=== PATIENT | female | born 1970 | race Caucasian/White ===

== ENCOUNTER 2016-12-06 00:57 | Day surgery (SDC) | payer OTHER ==
[2016-12-04 10:48] VITALS: BP 143/94
[2016-12-04 11:09] LABS: BASOPHIL % 0.5 % (0.0-0.2); EOSINOPHIL # 0.4 10^3/uL (0.0-0.2); EOSINOPHIL % 5.9 % (0.0-5.0); HEMATOCRIT 38.1 % (36.0-46.0); HEMOGLOBIN 12.3 g/dL (12.0-15.0); LYMPHOCYTES # 1.7 10^3/uL (1.0-4.8); LYMPHOCYTES % 26.8 % (24.0-44.0); MEAN CELL HGB 28.5 pg (26-34); MEAN CELL HGB CONCENTRATION 32.3 g/dL (33-37); MEAN CORP VOLUME 88.2 fL (78-100); MONOCYTES # 0.4 10^3/uL (0.3-0.8); MONOCYTES % 6.7 % (5.0-12.0); NEUTROPHIL # 3.8 10^3/uL (1.8-7.7); NEUTROPHILS % 59.2 % (41.0-85.0); WHITE BLOOD CELL 6.5 10^3/uL (4.5-11.0)
[2016-12-04 11:10] LABS: BILIRUBIN,URINE NEGATIVE (NEGATIVE); UROBILINOGEN,URINE NORMAL (NEGATIVE)
[2016-12-04 11:12] LABS: APPEARANCE,URINE CLEAR (CLEAR); UA COLOR YELLOW (YELLOW)
[2016-12-06] VITALS (11 sets, daily range): BP systolic 128–163; BP diastolic 70–84
[~2016-12-06] VITALS: Ht 167.6 cm; Wt 117.0 kg
[~2016-12-06 00:57] MED LIST: FLUO20CA8 PO
[2016-12-06] MEDS ORDERED: NS 100ML 100 ML IV ONE (05:21)
[2016-12-06] MEDS ORDERED: ANCEF ONE (05:22)
[2016-12-06] MEDS ORDERED: LACTATED RINGERS 1,000 ML ONE ×2 (05:22→08:59)
[2016-12-06] MEDS ORDERED: ANCEF 1 GM in NS 100ML 100 ML IV ONE (06:00)
[2016-12-06] MEDS: LACTATED RINGERS 1,000 ML IV SCH ×2 (06:13→08:48)
[2016-12-06] MEDS ORDERED: ZEMURON IV ONE (06:35)
[2016-12-06] MEDS ORDERED: ZOFRAN ONE (06:35)
[2016-12-06] MEDS ORDERED: NEOSTIGMINE ONE (06:35)
[2016-12-06] MEDS ORDERED: TORADOL ONE (06:35)
[2016-12-06] MEDS ORDERED: XYLOCAINE ONE (06:35)
[2016-12-06] MEDS ORDERED: DECADRON ONE (06:35)
[2016-12-06] MEDS ORDERED: SUBLIMAZE ONE (06:36)
[2016-12-06] MEDS ORDERED: ROBINUL ONE ×2 (06:36→09:15)
[2016-12-06] MEDS ORDERED: DIPRIVAN IV ONE (06:36)
[2016-12-06] MEDS ORDERED: LACTATED RINGERS 2,000 ML ONE (06:37)
[2016-12-06] MEDS ORDERED: DILAUDID ONE (06:37)
[2016-12-06] MEDS ORDERED: VERSED ONE (06:37)
[2016-12-06] MEDS ORDERED: SODIUM CHLORIDE IR ONE ×2 (07:22)
[2016-12-06] MEDS ORDERED: MOTRIN PO ONE (09:30)
[2016-12-06] MEDS ORDERED: SUBLIMAZE IV PRN ×2 (09:30)
[2016-12-06] MEDS ORDERED: DILAUDID IV PRN (09:30)
[2016-12-06] MEDS ORDERED: MOTRIN ONE (09:40)
--- NOTE | 2016-12-06 11:47 | OPH ---
DATE OF SURGERY: 12/06/2016 PREOPERATIVE DIAGNOSES: 1. Abnormal uterine bleeding. 2. Abnormal ultrasound findings of the uterus. POSTOPERATIVE DIAGNOSES: 1. Endometrial polyps. 2. Abnormal uterine bleeding. SURGERIES: 1. Symphion resection of the endometrial polyps. 2. Endometrial ablation using the HTA system. SURGEON: Miles Chacon MD ANESTHESIOLOGIST: Miles Alvarez CRNA ANESTHESIA: General. ESTIMATED BLOOD LOSS: 10 mL. FLUIDS: Crystalloid. SPECIMENS: Endometrial polyps. COMPLICATIONS: None. NARRATIVE OF REPORT: The patient was taken to the operating room. A timeout was performed and she underwent general anesthesia. She was prepped and draped in the usual sterile fashion. A speculum was used to visualize the cervix and the anterior lip of the cervix was grasped with a single tooth tenaculum and serial dilation to 21-Mirella was performed and we introduced the Symphion scope into the uterine cavity and took some photos of multiple uterine polyps. Both tubal ostia were noted and at that point, the Symphion device was introduced into the cavity and the polyps were resected. Once this was complete, we switched out to the HTA ablation device. The device was inserted. After pressure testing was complete, the device was deployed and ran through its entire cycle without any incident and the procedure was complete upon termination of the cycle. The scope was removed. The single tooth tenaculum was removed from the cervix and the cervix was noted to be hemostatic. Once we had accurate sponge, needle and instrument counts, the patient was awakened, extubated and transported to the recovery room in stable condition. Miles Chacon MD DR: [email or web address]/[email or web address] JOB# [id number]
== END 2016-12-06 10:32 | disposition home or self-care (01) ==
LOC: SDC 00:57
PROVIDERS: ATTEND Obstetrics & Gynecology
DX: N84.0 Polyp of corpus uteri (principal); F32.9 Major depressive disorder, single episode, unspecified; Z90.49 Acquired absence of other specified parts of digestive tract; Z98.51 Tubal ligation status
CPT/HCPCS: 36415; 58563; 81002; 81025; 85025; J0690; J1100; J1170; J1885; J2250; J2405; J2710; J3010; J3490 ×3; J7030; J7120 ×3